=== PATIENT | female | born 1955 | race Caucasian/White ===

== ENCOUNTER 2020-11-06 08:45 | Inpatient (IN) ==
[2020-11-06 10:09] LABS: Bilirubin,Urine Negative (Negative); Blood,Urine Trace (Negative); Clarity,Urine Clear (Clear); Color,Urine Colorless (Yellow); Glucose,Urine (UA) Normal (Normal); Ketones,Urine 20 mg/dL (Negative); Leukocyte Esterase,Urine Negative (Negative); Nitrite,Urine Negative (Negative); PH,Urine 6.5 pH Units (5.0-8.0); Protein,Urine Negative (Neg-Trace); RBC,Urine 0-3 per hpf (0-3); Specific Gravity,Urine 1.006 (1.010-1.025); Urobilinogen,Urine Normal (Normal); WBC,Urine 0-3 per hpf (0-3)
[2020-11-06 10:09] LABS: Basophils # 0.1 K/mcL (0.0-0.2); Basophils % 0.7 %; Eosinophils # 0.1 K/mcL (0.0-0.6); Eosinophils % 0.6 %; Hematocrit 41.5 % (35.3-44.9); Immature Granulocytes % 0.2 % (0-4); Lymphocytes # 1.8 K/mcL (0.6-4.6); Lymphocytes % 22.4 %; Mean Corpuscular HGB Conc 33.7 g/dL (31.6-35.5); Mean Corpuscular Hemoglobin 32.4 pg (28.0-33.3); Mean Corpuscular Volume 96.1 fL (83.0-100.0); Mean Platelet Volume 11.2 fL (9.4-12.4); Monocytes # 0.6 K/mcL (0.0-1.3); Monocytes % 7.2 %; Neutrophils # 5.6 K/mcL (1.6-8.9); Platelet Count 186 K/mcL (140-400); Red Blood Count 4.32 M/mcL (3.82-4.97); Red Cell Distribution Width 12.2 % (11.5-14.5); Segmented Neutrophils % 68.9 %; White Blood Count 8.1 K/mcL (4.3-11.1)
[2020-11-06 10:25] LABS: BUN/Creatinine Ratio 10 (6-26); Blood Urea Nitrogen 8 mg/dL (8-23); Calcium 9.9 mg/dL (8.6-10.3); Carbon Dioxide 23 mEq/L (23-29); Chloride 100 mEq/L (98-107); Glucose 106 mg/dL (70-105); Osmolality,Calculated 281 (280-300); Potassium 3.7 mEq/L (3.5-5.1); Sodium 136 mEq/L (136-145); eGFR For African Americans > 60 (> 60); eGFR For Non-African Americans > 60 (> 60)
[2020-11-06 10:32] LABS: Troponin I < 0.03 ng/mL (< 0.04)
[2020-11-06 10:41] LABS: Acetaminophen < 10 mcg/mL (10-20); Ethanol < 10 mg/dL (Less than 10); Salicylate < 2.5 mg/dL (15.0-30.0)
[2020-11-06 10:44] LABS: Amphetamine Screen,Urine Negative ng/mL (Cutoff=1000); Barbiturate Screen,Urine Negative ng/mL (Cutoff=200); Benzodiazepines Screen,Urine Positive ng/mL (Cutoff=200); Cannabinoid Screen,Urine Negative ng/mL (Cutoff = 50); Cocaine Screen,Urine Negative ng/mL (Cutoff= 300); Opiate Screen,Urine Negative ng/mL (Cutoff=300); Phencyclidine Screen,Urine Negative ng/mL (Cutoff=25)
[2020-11-06] MEDS ORDERED: ALPRAZolam 1 MG TABLET PO STA (13:17)
[2020-11-07] MEDS ORDERED: ALPRAZolam 1 MG TABLET PO ONE (12:41)
[2020-11-07 13:27] LABS: Adenovirus Not Detected (Not Detect); Bordetella Pertussis Not Detected (Not Detect); Chlamydophila pneumoniae Not Detected (Not Detect); Coronavirus 229E Not Detected (Not Detect); Coronavirus HKU1 Not Detected (Not Detect); Coronavirus NL63 Not Detected (Not Detect); Coronavirus OC43 Not Detected (Not Detect); Human Metapneumovirus Not Detected (Not Detect); Human Rhinovirus/Enterovirus Not Detected (Not Detect); Influenza A Subtype 2009 H1 Not Detected (Not Detect); Influenza B Not Detected (Not Detect); Mycoplasma pneumoniae Not Detected (Not Detect); Parainfluenza Virus 1 Not Detected (Not Detect); Parainfluenza Virus 2 Not Detected (Not Detect); Parainfluenza Virus 3 Not Detected (Not Detect); Parainfluenza Virus 4 Not Detected (Not Detect); Respiratory Syncytial Virus Not Detected (Not Detect); SARS-CoV-2 Not Detected (Not Detect)
[2020-11-07] MEDS ORDERED: Haloperidol Lactate 5 MG/ML VIAL IM PRN (16:19)
[2020-11-07] MEDS ORDERED: *HR* LORazepam 2 MG/ML VIAL IM PRN (16:19)
[2020-11-07] MEDS ORDERED: haloperidoL 5 MG TABLET PO PRN (16:19)
[2020-11-07] MEDS ORDERED: *HR* LORazepam 1 MG TABLET PO PRN (16:19)
[2020-11-07] MEDS ORDERED: Mag Hydrox/Al Hydrox/Simeth 30 ML UDC PO PRN (17:41)
[2020-11-07] MEDS ORDERED: MOM Conc 10 ML UD.LIQ PO PRN (17:41)
[2020-11-07] MEDS: Ibuprofen 400 MG TABLET PO PRN (18:36)
[2020-11-07] MEDS: ALPRAZolam 1 MG TABLET PO SCH ×2 (21:20→21:52)
[2020-11-08] MEDS: traZODone 50 MG TABLET PO PRN ×2 (02:56→22:02)
[2020-11-08] MEDS: ALPRAZolam 1 MG TABLET PO SCH ×2 (10:29→21:07)
[2020-11-08] MEDS: Aspirin Enteric Coated 81 MG Tablet PO SCH (14:12)
[2020-11-08] MEDS: Sennosides/Docusate Sodium TABLET PO SCH (14:12)
[2020-11-08] MEDS: Multivit/Ca/Min/Fe/FA 1 TAB TABLET PO SCH (14:12)
[2020-11-08] MEDS: Vitamin E 200 UNIT (90MG) CAPSULE PO SCH (14:14)
[2020-11-08] MEDS: risperiDONE 1 MG TABLET PO SCH (21:07)
[2020-11-08] MEDS: hydrOXYzine pamoate 25 MG CAPSULE PO PRN (22:02)
[2020-11-09] MEDS: Sennosides/Docusate Sodium TABLET PO SCH (09:07)
[2020-11-09] MEDS: Aspirin Enteric Coated 81 MG Tablet PO SCH (09:07)
[2020-11-09] MEDS: Vitamin E 200 UNIT (90MG) CAPSULE PO SCH (09:07)
[2020-11-09] MEDS: ALPRAZolam 1 MG TABLET PO SCH ×3 (09:07→20:12)
[2020-11-09] MEDS: Multivit/Ca/Min/Fe/FA 1 TAB TABLET PO SCH (09:08)
[2020-11-09] MEDS: Ibuprofen 400 MG TABLET PO PRN (15:53)
[2020-11-09] MEDS: risperiDONE 1 MG TABLET PO SCH (20:12)
[2020-11-09] MEDS: hydrOXYzine pamoate 25 MG CAPSULE PO PRN (20:55)
[2020-11-09] MEDS: traZODone 50 MG TABLET PO PRN (20:56)
[2020-11-10] MEDS: traZODone 50 MG TABLET PO PRN ×2 (02:38→21:22)
[2020-11-10] MEDS: Ibuprofen 400 MG TABLET PO PRN (08:27)
[2020-11-10] MEDS: Sennosides/Docusate Sodium TABLET PO SCH (08:27)
[2020-11-10] MEDS: Aspirin Enteric Coated 81 MG Tablet PO SCH (08:29)
[2020-11-10] MEDS: ALPRAZolam 1 MG TABLET PO SCH ×2 (08:29→21:22)
[2020-11-10] MEDS: Vitamin E 200 UNIT (90MG) CAPSULE PO SCH (08:29)
[2020-11-10] MEDS: Multivit/Ca/Min/Fe/FA 1 TAB TABLET PO SCH (08:30)
[2020-11-10] MEDS: risperiDONE 1 MG TABLET PO SCH (21:22)
[2020-11-11] MEDS: Vitamin E 200 UNIT (90MG) CAPSULE PO SCH (08:46)
[2020-11-11] MEDS: Aspirin Enteric Coated 81 MG Tablet PO SCH (08:46)
[2020-11-11] MEDS: Multivit/Ca/Min/Fe/FA 1 TAB TABLET PO SCH (08:46)
[2020-11-11] MEDS: Sennosides/Docusate Sodium TABLET PO SCH (08:46)
[2020-11-11] MEDS: ALPRAZolam 1 MG TABLET PO SCH (08:47)
[2020-11-11] MEDS: Ibuprofen 400 MG TABLET PO PRN (08:47)
[2020-11-11] MEDS ORDERED: ALPRAZolam 1 MG TABLET PO PRN (12:22)
[2020-11-11] MEDS: [UNRECOGNIZED DRUG - OTHER] PO SCH ×2 (16:50→21:12)
[2020-11-11] MEDS: [UNRECOGNIZED DRUG - OTHER] PO SCH ×2 (16:50→21:11)
[2020-11-11] MEDS ORDERED: Divalproex (24 HR) 500 MG TABLET PO SCH (21:00)
[2020-11-11] MEDS: traZODone 50 MG TABLET PO PRN (21:07)
[2020-11-11] MEDS: risperiDONE 1 MG TABLET PO SCH (21:07)
[2020-11-12] MEDS: traZODone 50 MG TABLET PO PRN (00:05)
[2020-11-12] MEDS: Multivit/Ca/Min/Fe/FA 1 TAB TABLET PO SCH (09:06)
[2020-11-12] MEDS: Aspirin Enteric Coated 81 MG Tablet PO SCH (09:06)
[2020-11-12] MEDS: Vitamin E 200 UNIT (90MG) CAPSULE PO SCH (09:06)
[2020-11-12] MEDS: Sennosides/Docusate Sodium TABLET PO SCH (09:07)
[2020-11-12] MEDS: [UNRECOGNIZED DRUG - OTHER] PO SCH ×3 (09:08→20:52)
[2020-11-12] MEDS: [UNRECOGNIZED DRUG - OTHER] PO SCH ×3 (09:08→20:52)
[2020-11-12] MEDS: Divalproex (24 HR) 250 MG TABLET PO SCH (20:50)
[2020-11-12] MEDS: RisperiDAL 3 MG TABLET PO SCH (20:51)
[2020-11-12] MEDS: hydrOXYzine pamoate 25 MG CAPSULE PO PRN (23:41)
[2020-11-13] MEDS: Vitamin E 200 UNIT (90MG) CAPSULE PO SCH (08:23)
[2020-11-13] MEDS: Sennosides/Docusate Sodium TABLET PO SCH (08:23)
[2020-11-13] MEDS: Aspirin Enteric Coated 81 MG Tablet PO SCH (08:23)
[2020-11-13] MEDS: Multivit/Ca/Min/Fe/FA 1 TAB TABLET PO SCH (08:23)
[2020-11-13] MEDS: [UNRECOGNIZED DRUG - OTHER] PO SCH ×3 (08:25→20:31)
[2020-11-13] MEDS: [UNRECOGNIZED DRUG - OTHER] PO SCH ×3 (08:26→20:31)
[2020-11-13] MEDS: Ibuprofen 400 MG TABLET PO PRN (12:12)
[2020-11-13] MEDS: hydrOXYzine pamoate 25 MG CAPSULE PO PRN (13:21)
[2020-11-13] MEDS: Divalproex (24 HR) 250 MG TABLET PO SCH (20:31)
[2020-11-13] MEDS: RisperiDAL 3 MG TABLET PO SCH (20:31)
[2020-11-14] MEDS: Sennosides/Docusate Sodium TABLET PO SCH (08:54)
[2020-11-14] MEDS: Vitamin E 200 UNIT (90MG) CAPSULE PO SCH (08:54)
[2020-11-14] MEDS: Multivit/Ca/Min/Fe/FA 1 TAB TABLET PO SCH (08:54)
[2020-11-14] MEDS: Aspirin Enteric Coated 81 MG Tablet PO SCH (08:54)
[2020-11-14 09:08] VITALS: BP 128/88; PULSE 82; TEMP 98.5; O2SAT 97
[2020-11-14] MEDS: [UNRECOGNIZED DRUG - OTHER] PO SCH (10:03)
[2020-11-14] MEDS: [UNRECOGNIZED DRUG - OTHER] PO SCH (10:03)
== END 2020-11-14 12:46 | disposition home or self-care (01) | DRG 885 ==
LOC: EMEROOARM 08:45 → 1ANU 11-07 16:15
PROVIDERS: ADMIT Psychiatry & Neurology Psychiatry; ATTEND Psychiatry & Neurology Psychiatry